=== PATIENT | female | born 1950 | race Caucasian/White ===

== ENCOUNTER 2016-09-21 07:01 | Day surgery (SDC) | payer MEDICARE, OTHER ==
[~2016-09-21] VITALS: Ht 154.9 cm; Wt 68.4 kg
[~2016-09-21 07:01] MED LIST: ACET1TAB40 PO; NAPR-260 PO
[2016-09-21 08:04] VITALS: Ht 154.9 cm; Wt 68.4 kg
[2016-09-21 08:23] VITALS: BP 140/71; PULSE 72; RESP 18
[2016-09-21] MEDS ORDERED: CHOLESTEROL MED (08:27)
[2016-09-21] MEDS ORDERED: ASPI-535 PO (08:27)
[2016-09-21] MEDS ORDERED: PROPOFOL 40 ML ONE (09:31)
--- NOTE | 2016-09-21 09:39 | OPPN ---
Date/Time of Note Date/Time of Note DATE: 09/21/16 TIME: 09:35 Operative Report Preoperative Diagnosis Chronic heartburn Abdominal pain Change in bowel habit Postoperative Diagnosis Gastroesophageal reflux disease Gastritis with erosions Sigmoid colon polyp Diverticulosis of the colon Internal hemorrhoids Operation/Procedure Performed Esophagogastroduodenoscopy and biopsy Colonoscopy and biopsy Anesthesia Type: MAC Estimated blood loss: none Transfusion Required: no Specimens Gastric mucosal biopsy Sigmoid colon polyp biopsy Grafts/Implants: none Complications: no BIJAN DANIEL MD Sep 21, 2016 09:38
[2016-09-21 10:06] VITALS: BP 123/67; PULSE 73; RESP 14
--- NOTE | 2016-09-21 10:35 | GILP ---
DATE OF PROCEDURE: 09/21/2016 PROCEDURE PERFORMED: 1. Esophagogastroduodenoscopy and biopsy. 2. Colonoscopy and biopsy. SURGEON: Josh Hobbs MD. PREOPERATIVE DIAGNOSES: 1. Chronic heartburn. 2. Abdominal pain. 3. Change in bowel habits. POSTOPERATIVE DIAGNOSES: 1. Gastroesophageal reflux disease. 2. Gastritis with erosions. 3. Gastric mucosal biopsies were taken for Helicobacter pylori test. 4. Colonoscopy all the way to the cecum. 5. Small sigmoid colon polyp was removed using the biopsy forceps. 6. Diverticulosis of the colon. 7. Internal hemorrhoids. INDICATION: Ms Meenakshi Hernandes is a 65-year-old female patient who had chronic heartburn not responding to therapy. She also had lower abdominal pain and change in the bowel habits. The patient was scheduled for endoscopy and colonoscopy for further evaluation. The procedures and possible complications were well explained to the patient. The patient understood and consented to the procedures. DESCRIPTION OF PROCEDURE: Under influence of anesthesia, the gastroscope was carefully introduced into the esophagus. Under direct vision it was advanced to the stomach into the pylorus into the duodenal bulb, and descending duodenum. Findings esophagus: The patient had gastroesophageal reflux disease. Stomach: She had gastritis with erosions. Gastric mucosal biopsies were taken for Helicobacter pylori test. Duodenum: Normal. The colonoscope was carefully introduced into the rectum and under direct vision it was advanced all the way to the cecum. Findings: The patient had a small sigmoid colon polyp and it was removed using the biopsy forceps. She was noted to have diverticulosis of the colon and internal hemorrhoids. She tolerated the procedures very well. There is no complications from the procedures. At the end of procedure she was awake with stable vital signs and she was discharged home in care of her family. IMPRESSION: Please see postoperative diagnoses. PLAN: 1. Omeprazole 40 mg p.o. q.a.m. 2. Bentyl 10 mg p.o. t.i.d. p.r.n. for pain and diarrhea. 3. Await histopathology reports. Dictated By: MD EMILY Alvarenga/tara/chris /Document#: [id number]
== END 2016-09-21 18:11 | disposition home or self-care (01) ==
LOC: GIL 07:01
PROVIDERS: ATTEND Internal Medicine Gastroenterology
DX: R19.4 Change in bowel habit (principal); D12.3 Benign neoplasm of transverse colon; B96.81 Helicobacter pylori [H. pylori] as the cause of diseases classified elsewhere; K21.9 Gastro-esophageal reflux disease without esophagitis; K29.60 Other gastritis without bleeding; D12.5 Benign neoplasm of sigmoid colon; K57.90 Diverticulosis of intestine, part unspecified, without perforation or abscess without bleeding; K64.8 Other hemorrhoids; I10 Essential (primary) hypertension
CPT/HCPCS: 87081; 88305

== ENCOUNTER 2018-02-07 10:24 | Emergency (ER) | payer MEDICARE, OTHER ==
[~2018-02-07] VITALS: Wt 69.6 kg
[~2018-02-07 10:24] MED LIST changes: -ACET1TAB40 PO; +ASPI-535 PO; +CHOLESTEROL MED; -NAPR-260 PO
[2018-02-07] MEDS ORDERED: KETOROLAC 15 MG INJ IM STA (11:11)
[2018-02-07] MEDS ORDERED: BENZ-6 PO (11:50)
[2018-02-07] MEDS ORDERED: D-ME473S2 PO (11:50)
--- NOTE | 2018-02-07 11:54 | ERD ---
ER Documentation Chief Complaint Chief Complaint COUGH, THROAT PAIN, CONGESTION, ONSET 1 DAY HPI Patient is a 67-year-old female who presents ER for concerns of cough, throat pain congestion times 1 day. Patient denies any fevers. Patient reports generalized body aches. She states her cough is dry in nature. Patient denies any nausea, vomiting, abdominal pain or diarrhea. Patient denies any chest pain or shortness of breath. Patient denies any neck pain or neck stiffness. No recent travel. No sick contacts. ROS All systems reviewed and are negative except as per history of present illness. Medications Home Meds Active Scripts Dextromethorphan Hb-Promethazine Hcl* (Promethazine DM* Syrup) 473 Ml Syrup, 5 ML PO Q6 PRN for COUGH, #1 BOT Prov:JACIEL BECKER PA-C 02/07/18 Benzonatate* (Tessalon Perle*) 100 Mg Capsule, 100 MG PO Q8H PRN for COUGH, #20 CAP Prov:JACIEL BECKER PA-C 02/07/18 Reported Medications Aspirin Ec (Aspir 81) 81 Mg Tablet.dr, 81 MG PO DAILY, #30 TAB 09/21/16 [Cholesterol Med] No Conflict Check 09/21/16 Allergies Allergies: Coded Allergies: No Known Allergy (Unverified , 12/21/15) PMhx/Soc History of Surgery: No Anesthesia Reaction: No Hx Neurological Disorder: No Hx Respiratory Disorders: No Hx Cardiac Disorders: No (BORDERLINE HTN) Hx Psychiatric Problems: No Hx Miscellaneous Medical Probl: No Hx Alcohol Use: No (OCCASIONAL) Hx Substance Use: No Hx Tobacco Use: No FmHx Family History: No diabetes Physical Exam Vitals Vital Signs Date Temp Pulse Resp B/P (MAP) Pulse Ox O2 O2 Flow FiO2 Time Delivery Rate 02/07/18 98.2 91 16 166/90 98 10:28 (115) Physical Exam GENERAL: Well-developed, well-nourished female. Appears in no acute distress. HEAD: Normocephalic, atraumatic. EYES: Pupils are equally reactive bilaterally. EOMs grossly intact. No conjunctival erythema. ENT: Moist mucous membranes. No uvula deviation. No kissing tonsils. NECK: Supple. No meningismus. Normal range of motion of the neck. LUNG: Clear to auscultation bilaterally. No rhonchi, wheezing, rales or coarse breath sounds. HEART: Regular rate and rhythm. No murmurs, rubs or gallops. EXTREMITIES: Equal pulses bilaterally. No peripheral clubbing, cyanosis or edema. No unilateral leg swelling. NEUROLOGIC: Alert and oriented. Moving all four extremities without any difficulty. Normal speech. Steady gait. SKIN: Normal color. Warm and dry. No rashes or lesions. Results 24 hrs Current Medications Medications Dose Sig/Alexia Start Time Status Last (Trade) Ordered Route PRN Stop Time Admin Dose Reason Admin Ketorolac 15 mg ONCE STAT 02/07/18 DC 02/07/18 Tromethamine IM 11:11 11:19 (Toradol) 02/07/18 11:13 Procedures/MDM MEDICAL DECISION MAKING: This is a 67-year-old female presents ER for concerns of cough, throat pain and congestion times 1 day. Vital signs were reviewed. Patient was afebrile. Patient was not hypoxic. ENT exam was normal. Lung exam was normal.. Patient was given Toradol for generalized body aches. Given these findings, the patients presentation is most consistent with viral URI. I have a much lower clinical concern for bacterial infections including pneumonia, meningitis, sinusitis, otitis externa, acute otitis media, strep pharyngitis, epiglottitis or peritonsillar abscess. Patient was nontoxic, non-opening prior to discharge. PRESCRIPTIONS: Promethazine DM, Tessalon Perles DISCHARGE: At this time, patient is stable for discharge and outpatient management. Supportive therapies such as OTC throat lozenges, salt water gurgles, popsicles and jello discussed. I have instructed the patient to follow-up with his/her primary care physician in 1-2 days. I have instructed the patient to promptly return to the ER for any new or worsening symptoms including increased pain, swelling, fever, nausea, vomiting, weakness or difficulty breathing. The patient and/or family expressed understanding of and agreement with this plan. All questions were answered. Home care instructions were provided. Disclaimer: Inadvertent spelling and grammatical errors are likely due to EHR/dictation software use and do not reflect on the overall quality of patient care. Also, please note that the electronic time recorded on this note does not necessarily reflect the actual time of the patient encounter. Departure Diagnosis: Primary Impression: Upper respiratory infection URI type: unspecified URI Qualified Codes: J06.9 - Acute upper respiratory infection, unspecified Condition: Stable Patient Instructions: Preventing Common Respiratory Infections Referrals: [facility] YOU HAVE RECEIVED A MEDICAL SCREENING EXAM AND THE RESULTS INDICATE THAT YOU DO NOT HAVE A CONDITION THAT REQUIRES URGENT TREATMENT IN THE EMERGENCY DEPARTMENT. FURTHER EVALUATION AND TREATMENT OF YOUR CONDITION CAN WAIT UNTIL YOU ARE SEEN IN YOUR DOCTORS OFFICE WITHIN THE NEXT 1-2 DAYS. IT IS YOUR RESPONSIBILITY TO MAKE AN APPOINTMENT FOR FOLOW-UP CARE. IF YOU HAVE A PRIMARY DOCTOR --you should call your primary doctor and schedule an appointment IF YOU DO NOT HAVE A PRIMARY DOCTOR YOU CAN CALL OUR PHYSICIAN REFERRAL HOTLINE AT IF YOU CAN NOT AFFORD TO SEE A PHYSICIAN YOU CAN CHOSE FROM THE FOLLOWING [facility] [address] [facility] [address] [facility] [address] [facility] [address] [facility] [address] [facility]. [facility] [address] [facility]. [facility] YOU HAVE RECEIVED A MEDICAL SCREENING EXAM AND THE RESULTS INDICATE THAT YOU DO NOT HAVE A CONDITION THAT REQUIRES URGENT TREATMENT IN THE EMERGENCY DEPARTMENT. FURTHER EVALUATION AND TREATMENT OF YOUR CONDITION CAN WAIT UNTIL YOU ARE SEEN IN YOUR DOCTORS OFFICE WITHIN THE NEXT 1-2 DAYS. IT IS YOUR RESPONSIBILITY TO MAKE AN APPOINTMENT FOR FOLOW-UP CARE. IF YOU HAVE A PRIMARY DOCTOR --you should call your primary doctor and schedule and appointment IF YOU DO NOT HAVE A PRIMARY DOCTOR YOU CAN CALL OUR PHYSICIAN REFERRAL HOTLINE AT . IF YOU CAN NOT AFFORD TO SEE A PHYSICIAN YOU CAN CHOSE FROM THE FOLLOWING [facility] INSTITUTIONS: [facility] [address] [place] [address] [facility] [address] [place] [address] [facility] [address] [place] [address] Additional Instructions: Call your primary care doctor TOMORROW for an appointment during the next 1-2 days.See the doctor sooner or return here if your condition worsens before your appointment time. JACIEL BECKER PA-C Feb 07, 2018 11:54
[2018-02-07 12:12] VITALS: BP 152/72; PULSE 84; RESP 16
== END 2018-02-07 11:59 | disposition home or self-care (01) ==
LOC: FTE 10:24
DX: J06.9 Acute upper respiratory infection, unspecified (principal); Z79.82 Long term (current) use of aspirin
CPT/HCPCS: 87400; 96372; 99284; J1885